=== PATIENT | female | born 2000 | race Caucasian/White ===

== ENCOUNTER → 2021-05-11 | Outpatient (CLI) | payer OTHER ==
[2021-05-12 19:29] LABS: BACTERIAL VAGINOSIS DNA NEGATIVE (NEGATIVE); CANDIDA GLABRATA DNA NEGATIVE (NEGATIVE); CANDIDA GROUP DNA NEGATIVE (NEGATIVE); CANDIDA KRUSEI DNA NEGATIVE (NEGATIVE); TRICHOMONAS VAGINALIS DNA NEGATIVE (NEGATIVE)
== END ==
LOC: LAB.N 08:00
PROVIDERS: ATTEND Physician Assistant Medical
DX: N76.0 Acute vaginitis (principal)
CPT/HCPCS: 87077; 87086; 87661; 87801

== ENCOUNTER 2021-10-02 22:07 | Emergency (ER) | payer OTHER ==
[2021-10-02 22:18] VITALS: BP 131/82
--- NOTE | 2021-10-02 22:20 | ED Physician Documentation ---
PD HPI UPPER EXT INJURY - Stated complaint Stated Complaint: R WRIST PX - Chief complaint Chief Complaint: Ext Problem - History obtained from History obtained from: Patient - History of Present Illness Location: Right, Wrist Type of injury: Fall Where injury occurred: Home Timing - onset: Enter time (12:00 (noon)), Today Timing - details: Abrupt onset Improved by: Rest Worsened by: Moving, Palpating Associated symptoms: No: Weakness, Numbness Recently seen: Not recently seen - Additonal information Additional information: patient tripped over a "baby gate" (per patient) at home, fell backwards onto outstretched RUE and experienced sudden onset right wrist pain when she landed. She is right hand dominant Review of Systems Skin: reports: Reviewed and negative Musculoskeletal: reports: Joint pain, Joint swelling Neurologic: denies: Focal weakness, Numbness PD PAST MEDICAL HISTORY - Past Medical History Past Medical History: No Cardiovascular: None Respiratory: None Neuro: None Endocrine/Autoimmune: None GI: None PHTHALIC ACID PURIFIER: None : None HEENT: None Psych: None Musculoskeletal: None Derm: None - Past Surgical History Past Surgical History: Yes General: Appendectomy, Other Ortho: Other HEENT: Tonsil/Adenoidectomy - Present Medications Home Medications: Ambulatory Orders Medication Instructions Recorded Confirmed No Known Home Medications 10/02/21 10/02/21 - Allergies Allergies/Adverse Reactions: Allergies Allergy/AdvReac Type Severity Reaction Status Date / Time No Known Drug Allergies Allergy Verified 10/02/21 22:17 - Social History Does the pt smoke?: No Smoking Status: Never smoker Does the pt drink ETOH?: No Does the pt have substance abuse?: No - Immunizations Immunizations are current?: Yes - POLST Patient has POLST: No PD ED PE NORMAL - Vitals Vital signs reviewed: Yes - General General: Alert and oriented X 3, No acute distress, Well developed/nourished - Derm Derm: Normal color, Warm and dry - Extremities Extremities: No edema - Neuro Neuro: No motor deficit, No sensory deficit PD ED PE EXPANDED - Extremities Extremities: Tenderness (medial and lateral aspects of right wrist are TTP), Limited ROM (right wrist limited flexion, extension, deviation (both ulnar and radial) due to pain). No: Deformity Results - Vitals Vitals: Vital Signs - 24 hr 10/02/21 10/02/21 10/02/21 22:15 22:48 23:26 Temperature 36.3 C L Heart Rate 88 Respiratory 16 16 15 Rate Blood Pressure 131/82 H O2 Saturation 99 Oxygen O2 Source Room air - Rads (name of study) right wrist xrays Radiology: Prelim report reviewed, See rad report Procedures - Splint (location) Upper extremity right Splint applied by: Nurse Type of splint: Prefab velcro wrist Other: Patient tolerated well, No complications, Neurovascular intact, Good alignment PD MEDICAL DECISION MAKING - ED course Complexity details: reviewed results, re-evaluated patient, considered differential, d/w patient ED course: c/o right wrist pain after falling today at noon. No acute findings on plain- film xrays (no evidence of fracture nor dislocation). velcro wrist splint placed for comfort and to minimize movement for initial few days. Departure - Departure Disposition: 01 Home, Self Care Clinical Impression: Right wrist sprain Condition: Good Instructions: ED Splint Care JUJU Nguyễn Sprain Wrist Forms: Activity restrictions Discharge Date/Time: 10/02/21 23:41
--- NOTE | 2021-10-02 23:24 | XRAY Report ---
PROCEDURE: Wrist 4 View RT INDICATIONS: fall, pain, tenderness TECHNIQUE: 4 views of the wrist were acquired. COMPARISON: None FINDINGS: Bones: No fractures or dislocations. No suspicious bony lesions. Scaphoid view: No fracture Soft tissues: No suspicious soft tissue calcifications. IMPRESSION: Normal right wrist Reviewed by: Dallas Causey on 10/02/2021 11:23 PM [facility] Approved by: Dallas Causey on 10/02/2021 11:23 PM [facility] Station ID: [id number]
== END 2021-10-02 23:41 | disposition home or self-care (01) ==
LOC: ED 22:07
DX: S63.501A Unspecified sprain of right wrist, initial encounter (principal); W01.0XXA Fall on same level from slipping, tripping and stumbling without subsequent striking against object, initial encounter; Y92.009 Unspecified place in unspecified non-institutional (private) residence as the place of occurrence of the external cause
CPT/HCPCS: 99282; 99283

== ENCOUNTER 2021-10-05 12:13 | Outpatient (CLI) | payer OTHER ==
--- NOTE | 2021-10-05 14:48 | XRAY Report ---
Be secondary to PROCEDURE: Wrist 3 View RT INDICATIONS: RIGHT WRIST PAIN S/P FALL 10/02/2021 TECHNIQUE: 3 views of the wrist were acquired. COMPARISON: X-ray of the right wrist, 4 views, 10/02/2021. FINDINGS: Bones: No fractures or dislocations. Questioning of mild widening of scapholunate interval. No susp icious bony lesions. Soft tissues: No suspicious soft tissue calcifications. Soft tissue swelling around wrist. IMPRESSION: 1. No fracture or dislocation. 2. ? Mild widening of scapholunate interval, which could indicate ligamentous injury. Recommend corre lation with focal pain and tenderness. Reviewed by: Shant Alberts MD on 10/05/2021 2:46 PM PST Approved by: Shant Alberts MD on 10/05/2021 2:46 PM PST Station ID: [id number]
== END 2021-10-05 23:59 | disposition home or self-care (01) ==
LOC: DI.N 12:13
PROVIDERS: ATTEND Physician Assistant
DX: M25.531 Pain in right wrist (principal)

== ENCOUNTER 2021-11-16 08:00 | Outpatient (CLI) | payer OTHER | END 2021-11-16 23:59 | LOC: LAB.N 08:00 | PROVIDERS: ATTEND Physician Assistant | DX: R39.9 Unspecified symptoms and signs involving the genitourinary system (principal) | CPT/HCPCS: 87077; 87086 ==

== ENCOUNTER 2022-01-05 22:21 | Emergency (ER) | payer OTHER ==
--- NOTE | 2022-01-05 23:05 | ED Physician Documentation ---
PD HPI LOWER EXT INJURY - Stated complaint Stated Complaint: R FOOT INJURY - Chief complaint Chief Complaint: Trauma Ext - History obtained from History obtained from: Patient - History of Present Illness PD HPI LOW EXT INJURY LOCATION: Right, Ankle, Foot Type of injury: Twist Where injury occurred: Work Timing - onset: Today Timing - duration: Hours (4) Improved by: Rest, Ice Worsened by: Moving, Palpating Associated symptoms: Swelling. 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 She is having difficulty with walking on her right foot. She is complaining of pain to the dorsum of the foot and extending into the toes. 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 : None HEENT: None Psych: None Musculoskeletal: None Derm: None - Past Surgical History Past Surgical History: Yes General: Appendectomy, Other Ortho: Other HEENT: Tonsil/Adenoidectomy - Present Medications Home Medications: Ambulatory Orders Medication Instructions Recorded Confirmed No Known Home Medications 10/02/21 01/05/22 - Allergies Allergies/Adverse Reactions: Allergies Allergy/AdvReac Type Severity Reaction Status Date / Time No Known Drug Allergies Allergy Verified 01/05/22 22:29 - Social History Does the pt smoke?: No Smoking Status: Never smoker Does the pt drink ETOH?: No Does the pt have substance abuse?: No - Immunizations Immunizations are current?: Yes - POLST Patient has POLST: No PD ED PE NORMAL - Vitals Vital signs reviewed: Yes (Hypertensive) - General General: Alert and oriented X 3, No acute distress, Well developed/nourished - HEENT HEENT: Atraumatic, PERRL, EOMI - Respiratory Respiratory: No respiratory distress - Derm Derm: Normal color, Warm and dry, No rash - Extremities Extremities: No deformity, No edema, Other (Tenderness to the dorsal aspect of the right foot. There is no crepitance or deformity to the area distal neurovascular components are intact there is no tenderness to the distal malleoli bilaterally. 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, No motor deficit, No sensory deficit, Normal speech Eye Opening: Spontaneous Motor: Obeys Commands Verbal: Oriented GCS Score: 15 - Psych Psych: Normal mood, Normal affect Results - Vitals Vitals: Vital Signs - 24 hr 01/05/22 01/05/22 22:25 23:35 Temperature 36.6 C 36.6 C Heart Rate 92 89 Respiratory 16 19 Rate Blood Pressure 136/82 H 131/76 H O2 Saturation 98 99 Oxygen O2 Source Room air - Rads (name of study) foot R Radiology: Prelim report reviewed (Impression: Normal right foot.), EMP read indepedently, See rad report Procedures - Splint (location) right foot Splint applied by: Tech Type of splint: Fiberglass, Posterior Other: Patient tolerated well, No complications, Neurovascular intact, Good alignment, Crutches provided PD MEDICAL DECISION MAKING - ED course Complexity details: reviewed results, re-evaluated patient, considered differential, d/w patient ED course: 21-year-old female with a sprain to her right foot is placed into a posterior splint and onto crutches. I indicated the patient may take anywhere from 2 to 5 days or 2 weeks for this to resolve itself and I have given her a note for 1 week for work. Departure - Departure Disposition: 01 Home, Self Care Clinical Impression: Sprain of right foot Qualifiers: Encounter type: initial encounter Qualified Code(s): S93.601A - Unspecified sprain of right foot, initial encounter Condition: Stable Instructions: ED Sprain Foot Follow-Up: Bryan Bond MD [Provider Admit Priv/Credential] - Comments: Violeta, today it looks like you have sprained your foot. This may keep you out of action for several days up to 2 weeks. I have given you a number for follow- up with the orthopedic doctor. If you do not have resolution of your symptoms in a short order follow-up. Use the crutches as needed and wear the splint at least 2 days. Forms: Activity restrictions
--- NOTE | 2022-01-05 23:25 | XRAY Report ---
PROCEDURE: Foot 3 View RT INDICATIONS: Twisted ankle/foot, c/o R foot pain. TECHNIQUE: 3 views of the foot were acquired. COMPARISON: None FINDINGS: Bones: No fractures or dislocations. No suspicious bony lesions. Soft tissues: No tibiotalar joint effusion. Achilles tendon appears normal. IMPRESSION: Normal right foot Reviewed by: Dlalas Causey on 01/05/2022 11:25 PM [facility] Approved by: Dallas Causey on 01/05/2022 11:25 PM [facility] Station ID: [id number]
[2022-01-05 23:37] VITALS: BP 131/76
== END 2022-01-05 23:49 | disposition home or self-care (01) ==
LOC: ED 22:21
DX: S93.601A Unspecified sprain of right foot, initial encounter (principal); X50.1XXA Overexertion from prolonged static or awkward postures, initial encounter; Y93.01 Activity, walking, marching and hiking; Y99.0 Civilian activity done for income or pay
CPT/HCPCS: 1040M; 73630; 29515; 99282

== ENCOUNTER 2022-03-29 08:00 | Outpatient (CLI) | payer OTHER | END 2022-03-29 23:59 | disposition home or self-care (01) | LOC: LAB.N 08:00 | PROVIDERS: ATTEND Family Medicine | DX: J06.9 Acute upper respiratory infection, unspecified (principal); Z20.822 Contact with and (suspected) exposure to COVID-19 ==

== ENCOUNTER 2022-04-11 18:56 | Emergency (ER) | payer OTHER ==
[2022-04-11 19:23] LABS: BASOPHILS # (AUTO) 0.1 10^3/uL (0.0-0.1); BASOPHILS % (AUTO) 0.6 %; EOSINOPHILS # (AUTO) 0.1 10^3/uL (0.0-0.7); EOSINOPHILS % (AUTO) 1.1 %; HCT - HEMATOCRIT 40.9 % (37.0-47.0); HGB - HEMOGLOBIN 12.7 g/dL (12.0-16.0); LYMPHOCYTES # (AUTO) 3.1 10^3/uL (1.5-3.5); LYMPHOCYTES % (AUTO) 27.5 %; MEAN CORPUSCULAR HEMOGLOBIN 27.1 pg (27.0-31.0); MEAN CORPUSCULAR HGB CONC 31.1 g/dL (32.0-36.0); MEAN CORPUSCULAR VOLUME 87.4 fL (81.0-99.0); MEAN PLATELET VOLUME 10.1 fL (7.9-10.8); MONOCYTES # (AUTO) 0.7 10^3/uL (0.0-1.0); MONOCYTES % (AUTO) 6.4 %; NEUTROPHILS # (AUTO) 7.3 10^3/uL (1.5-6.6); NEUTROPHILS % (AUTO) 64.1 %; PLT - PLATELET COUNT 391 10^3/uL (130-450); RED BLOOD COUNT 4.68 10^6/uL (4.20-5.40); RED CELL DISTRIBUTION WIDTH 14.9 % (12.0-15.0); WHITE BLOOD COUNT 11.4 x10^3/uL (4.8-10.8)
[2022-04-11] MEDS ORDERED: ONDANSETRON 4 MG/2 ML VIAL IVP STA (19:25)
[2022-04-11] MEDS ORDERED: SODIUM CHLORIDE 0.9% 1,000 ML IV STA (19:25)
[2022-04-11] MEDS ORDERED: KETOROLAC 15 MG/ML VIAL IVP STA (19:25)
[2022-04-11] MEDS ORDERED: HYDROmorphone 1 MG/ML CARPUJECT IVP STA ×2 (19:25→20:38)
--- OUTSIDE RECORDS SUMMARY | 2022-04-11 19:25 | EXTERNAL MEDICAL SUMMARY RPT | Continuity of Care Document ---
:2000 Author Organization [facility] Address [address] [place] [address] Phone Care Team Providers Name Role Phone SHARAN BARFIELD, Parker Esteban Unavailable UnavailArlin manjarrez LPN Unavailable Unavailable Saúl SAEED Unavailable Unavailable Allergies No information. Encounters No information. Medications date description facility 20220329 prednisone All 20220329 benzonatate All 20220329 prednisone All 20220329 benzonatate All 20220329 prednisone All 20220329 benzonatate All Problems date description facility 20220329 COVID19 Testing All 20220329 Upper respiratory infection All 20220329 Acute upper respiratory infections of u nspecified site All 20220329 Acute upper respiratory infection, unsp ecified All Procedures date description facility 20220329 Med Administration (PO-SL-[place]) All 20220329 Dexamethasone Sodium Phosphate Inj 10mg /1mL All 20220329 POC STREP ASSAY W/OPTIC All 20220329 COVID19 Testing All 20220329 Med Administration ([place]) All 20220329 Dexamethasone Sodium Phosphate Inj 10mg /1mL All 20220329 POC STREP ASSAY W/OPTIC All 20220329 COVID19 Testing All 20220329 Med Administration (PO-SL-[place]) All 20220329 Dexamethasone Sodium Phosphate Inj 10mg /1mL All 20220329 POC STREP ASSAY W/OPTIC All 20220329 COVID19 Testing All Results test status date ordered by attending specimen herson e _2019NCoV_COVID-19_Lab unknown 20220329 unknown unknown unknown _Test_Result_Text_ Streptococcus_pyogenes unknown 20220329 unknown unknown unknown _DNA_Presence_in_Throat _by_NAA_with_probe_dete ction Microbial_identificati unknown 20220329 unknown unknown unknown on_kit_rapid_strep_meth od COVID-19_REFERENCE_TES unknown 20220329 unknown unknown unknown T T unknown 20220329 unknown unknown unknown _2019NCoV_COVID-19_Lab unknown 20220329 unknown unknown unknown _Test_Result_Text_ Streptococcus_pyogenes unknown 20220329 unknown unknown unknown _DNA_Presence_in_Throat _by_NAA_with_probe_dete ction Microbial_identificati unknown 20220329 unknown unknown unknown on_kit_rapid_strep_meth od COVID-19_REFERENCE_TES unknown 20220329 unknown unknown unknown T T unknown 20220329 unknown unknown unknown Streptococcus_pyogenes unknown 20220329 unknown unknown unknown _DNA_Presence_in_Throat _by_NAA_with_probe_dete ction Microbial_identificati unknown 20220329 unknown unknown unknown on_kit_rapid_strep_meth od facility observation status value reference units lab abnor mal line range code notes All _2019NCoV_CO unknown NEGATIVE unknown _6659 unkno wn unknown VID-19_Lab_Te 97 st_Result_Tex t_ All Streptococcu unknown Neg unknown _6048 unknown unknown s_pyogenes_DN 9-2 A_Presence_in _Throat_by_NA A_with_probe_ detection All Microbial_id unknown Neg unknown _3554 unknown unknown entification_ kit_rapid_str ep_method All COVID-19_REF unknown NEGATIVE unknown COVID unkno wn unknown ERENCE_TEST 19.REF All T unknown NEGATIVE unknown COVID unknown un known -19 All _2019NCoV_CO unknown NEGATIVE unknown _6659 unkno wn unknown VID-19_Lab_Te 97 st_Result_Tex t_ All Streptococcu unknown Neg unknown _6048 unknown unknown s_pyogenes_DN 9-2 A_Presence_in _Throat_by_NA A_with_probe_ detection All Microbial_id unknown Neg unknown _3554 unknown unknown entification_ kit_rapid_str ep_method All COVID-19_REF unknown NEGATIVE unknown COVID unkno wn unknown ERENCE_TEST 19.REF All T unknown NEGATIVE unknown COVID unknown un known -19 All Streptococcu unknown Neg unknown _6048 unknown unknown s_pyogenes_DN 9-2 A_Presence_in _Throat_by_NA A_with_probe_ detection All Microbial_id unknown Neg unknown _3554 unknown unknown entification_ kit_rapid_str ep_method Vital Signs date measurement value source 20220329 weight_standard 225 lb 20220329 weight_metric 102.06 kg 20220329 temperature_standard 98.2 F 20220329 temperature_metric 36.78 C 20220329 respiration_rate 28 /min 20220329 height_standard 68 in 20220329 height_metric 172.72 cm 20220329 heart_rate 77 /min 20220329 BP_systolic 130 mm[Hg] 20220329 BP_diastolic 75 mm[Hg] 20220329 BMI 34.33 kg/m2 20220329 weight_standard 225 lb 20220329 weight_metric 102.06 kg 20220329 temperature_standard 98.2 F 20220329 temperature_metric 36.78 C 20220329 respiration_rate 28 /min 20220329 height_standard 68 in 20220329 height_metric 172.72 cm 20220329 heart_rate 77 /min 20220329 BP_systolic 130 mm[Hg] 20220329 BP_diastolic 75 mm[Hg] 20220329 BMI 34.33 kg/m2 20220329 weight_standard 225 lb 20220329 weight_metric 102.06 kg 20220329 temperature_standard 98.2 F 20220329 temperature_metric 36.78 C 20220329 respiration_rate 28 /min 20220329 height_standard 68 in 20220329 height_metric 172.72 cm 20220329 heart_rate 77 /min 20220329 BP_systolic 130 mm[Hg] 20220329 BP_diastolic 75 mm[Hg] 20220329 BMI 34.33 kg/m2
--- NOTE | 2022-04-11 19:27 | ED Physician Documentation ---
PD HPI ABD PAIN - Stated complaint Stated Complaint: KIDNEY PX - Chief complaint Chief Complaint: Abd Pain - History obtained from History obtained from: Patient (A few days of right flank pain much more severe since 4 PM today with some retching and a small amount of hematuria. 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: No Smoking Status: Never smoker Does the pt drink ETOH?: No Does the pt have substance abuse?: No - Immunizations Immunizations are current?: Yes - POLST Patient has POLST: No PD ED PE NORMAL - Vitals Vital signs reviewed: Yes - General General: Alert and oriented X 3, Other (She is crying in pain) - Cardiac Cardiac: RRR, No murmur - Respiratory Respiratory: No respiratory distress, Clear bilaterally - Abdomen Abdomen: Normal bowel sounds, Soft, Non tender - Back Back: No CVA TTP, No spinal TTP - Derm Derm: Normal color, Warm and dry - Extremities Extremities: No edema, No calf tenderness / cord - Neuro Neuro: Alert and oriented X 3, Normal speech Results - Vitals Vitals: Vital Signs - 24 hr 04/11/22 04/11/22 04/11/22 19:00 19:15 19:59 Temperature 36.4 C L Heart Rate 118 H 73 81 Respiratory 20 24 21 Rate Blood Pressure 140/94 H 120/81 H O2 Saturation 98 10 L 100 04/11/22 04/11/22 04/11/22 20:32 20:55 22:23 Temperature 37 C Heart Rate 70 86 70 Respiratory 16 17 14 Rate Blood Pressure 119/84 H 140/84 H O2 Saturation 97 97 97 Oxygen O2 Source Room air - Labs Labs: Laboratory Tests 04/11/22 04/11/22 04/11/22 19:15 19:15 19:15 WBC 11.4 H RBC 4.68 Hgb 12.7 Hct 40.9 MCV 87.4 MCH 27.1 MCHC 31.1 L RDW 14.9 Plt Count 391 MPV 10.1 Neut # (Auto) 7.3 H Lymph # (Auto) 3.1 [place] # (Auto) 0.7 Eos # (Auto) 0.1 Baso # (Auto) 0.1 Absolute Nucleated RBC 0.00 Nucleated RBC % 0.0 Sodium 137 Potassium 3.5 Chloride 103 Carbon Dioxide 24 Anion Gap 10.0 BUN 8 Creatinine 0.8 Estimated GFR (MDRD) 88 L Glucose 91 Calcium 9.4 Total Bilirubin 0.6 AST 16 ALT 23 Alkaline Phosphatase 36 L Total Protein 8.0 Albumin 4.3 Globulin 3.7 Albumin/Globulin Ratio 1.2 Lipase 31 Serum HCG, Qual NEGATIVE Urine Color Urine Clarity Urine pH Ur Specific [place] Urine Protein Urine Glucose (UA) Urine Ketones Urine Occult Blood Urine Nitrite Urine Bilirubin Urine Urobilinogen Ur Leukocyte Esterase Ur Microscopic Review Urine Culture Comments 04/11/22 21:50 WBC RBC Hgb Hct MCV MCH MCHC RDW Plt Count MPV Neut # (Auto) Lymph # (Auto) [place] # (Auto) Eos # (Auto) Baso # (Auto) Absolute Nucleated RBC Nucleated RBC % Sodium Potassium Chloride Carbon Dioxide Anion Gap BUN Creatinine Estimated GFR (MDRD) Glucose Calcium Total Bilirubin AST ALT Alkaline Phosphatase Total Protein Albumin Globulin Albumin/Globulin Ratio Lipase Serum HCG, Qual Urine Color YELLOW Urine Clarity CLEAR Urine pH 6.0 Ur Specific [place] 1.025 Urine Protein NEGATIVE Urine Glucose (UA) NEGATIVE Urine Ketones 15 H Urine Occult Blood NEGATIVE Urine Nitrite NEGATIVE Urine Bilirubin NEGATIVE Urine Urobilinogen 0.2 (NORMAL) Ur Leukocyte Esterase NEGATIVE Ur Microscopic Review NOT INDICATED Urine Culture Comments NOT INDICATED PD MEDICAL DECISION MAKING - ED course ED course: 22-year-old woman with severe right flank pain a couple days duration, much worse today. She is writhing in pain and we were able to eventually get a hold of her pain here. Her work-up is basically negative and on repeat examination she was nontender and feeling much better. CT did not show any ureterolithiasis or nephrolithiasis. Urine without pyelonephritis. Departure - Departure Disposition: 01 Home, Self Care Clinical Impression: Right flank pain Condition: Good Record reviewed to determine appropriate education?: Yes Instructions: ED Abdominal Pain Female Non-Specific Abdominal Pain Prescriptions: Oxycodone HCl/Acetaminophen [Percocet 5-325 mg Tablet] 1 - 2 each PO Q6H PRN #14 tablet PRN Reason: pain Comments: As discussed, the cause of your pain is unclear but the CAT scan and labs and urine do not show anything too concerning. Return Saturday if not better, anytime if worse. I sent your prescription electronically to [facility] in [place]. I am prescribing a short course of narcotic pain medication for you. These are potentially dangerous and addictive medications that should be used carefully. These medications may constipate you. Take an ihzy-psx-yklecaz stool softener (docusate) twice daily with plenty of water while taking these medications. If you go 24 hours without a bowel movement, take [id number] miralax, per package instructions. Do not drink or drive while taking these medications. If you received narcotic or sedating medications while in the emergency department, do not drive for 24 hours. Store this medication in a safe, secure place and out of reach of children. It is a violation of federal law to give or sell this medication to another person or to use in a manner other than prescribed. The ED will not refill narcotic prescriptions, including prescriptions lost or stolen. To dispose of unwanted medications: 1. [facility] at [address] in [place] has a medication drop box. They accept prescription medications (in pill form) Saturday through Saturday 9:00 a.m. to 5:00 p.m. 2. The [facility] accepts prescription medications (in pill form only) for disposal year round. Call for more information. 3. Contact the [facility] for the next [facility] sponsored prescription drug collection event. , [phone], or [phone]; Note that many narcotic pain relievers also contain Tylenol/acetaminophen. Please ensure that your total dose of acetaminophen from all sources does not exceed 3 g (3000 mg) per day. Discharge Date/Time: 04/11/22 22:22
[2022-04-11 19:49] LABS: BILIRUBIN,TOTAL 0.6 mg/dL (0.2-1.0); CALCIUM 9.4 mg/dL (8.5-10.3); CREATININE 0.8 mg/dL (0.4-1.0); POTASSIUM 3.5 mmol/L (3.5-5.0)
[2022-04-11 19:50] LABS: ALBUMIN 4.3 g/dL (3.2-5.5); ALBUMIN/GLOBULIN RATIO 1.2 (1.0-2.2)
[2022-04-11 20:06] LABS: HCG,QUALITATIVE BLOOD NEGATIVE
[2022-04-11] MEDS ORDERED: HALOPERIDOL 5 MG/ML VIAL IVP STA (20:38)
--- NOTE | 2022-04-11 20:58 | CT Report ---
PROCEDURE: Abdomen/Pelvis WO INDICATIONS: Right flank pain TECHNIQUE: Noncontrast 5 mm thick sections acquired from the diaphragms to the symphysis. 5 mm coronal and sagi ttal reformats were then performed. For radiation dose reduction, the following was used: automated exposure control, adjustment of mA and/or kV according to patient size. COMPARISON: None. FINDINGS: Image quality: Excellent. Lung bases: There is mild dependant atelectasis. Heart: Heart is normal in size. URINARY: Right Kidney and Ureter: No stones or hydronephrosis. No hydroureter. Left Kidney and Ureter: No stones or hydronephrosis. No hydroureter. Bladder: Normal wall thickness. No stones. ABDOMEN: Liver: Noncontrast evaluation of the liver demonstrates no discrete mass. Gallbladder: Within normal limits without calcified gallstones. Biliary ducts: No biliary ductal dilatation. Pancreas: Unremarkable. Spleen: Normal in size. Adrenal Glands: No adrenal nodules. Stomach and Bowel: Stomach, small bowel loops, and colon are normal in caliber and wall thickness. T he appendix is not discretely identified and may be surgically absent. There are surgical sutures adj acent to cecum likely related to prior appendectomy. No pericecal inflammatory changes. There are a f ew colonic diverticula without acute diverticulitis Peritoneum: No abnormal intraperitoneal fluid. No free air. Ventral Wall: No hernia. Abdominal Nodes: No retroperitoneal or mesenteric adenopathy by size criteria. Vessels: Aorta and inferior vena cava are normal in size. PELVIS: Pelvic Organs:The uterus and ovaries appear within normal size limits. Pelvic Nodes: No enlarged lymph nodes. Miscellaneous: No inguinal hernias identified. Bones: Visualized osseous structures demonstrate no suspicious focal lesions. IMPRESSION: 1. No definite acute intra-abdominal abnormality. Specifically, no evidence of nephrolithiasis or obs tructive uropathy. Reviewed by: Sameer Urrutia MD on 04/11/2022 8:57 PM PDT Approved by: Sameer Urrutia MD on 04/11/2022 8:57 PM PDT Station ID: [id number]
[2022-04-11 22:02] LABS: BILIRUBIN,URINE NEGATIVE (NEGATIVE); GLUCOSE, URINE (UA) NEGATIVE (NEGATIVE); KETONES,URINE (UA) 15 mg/dL (NEGATIVE); LEUKOCYTE ESTERASE, URINE NEGATIVE (NEGATIVE); NITRITE,URINE NEGATIVE (NEGATIVE); OCCULT BLOOD,URINE NEGATIVE (NEGATIVE); PROTEIN,URINE NEGATIVE (NEGATIVE); UROBILINOGEN,URINE 0.2 (NORMAL) E.U./dL (NORMAL)
[2022-04-11 22:06] LABS: CLARITY,URINE CLEAR (CLEAR)
[2022-04-11] MEDS ORDERED: oxyCODONE/ACET 5/325 Prepack 4 PO STA (22:17)
[2022-04-11 22:24] VITALS: BP 140/84
== END 2022-04-11 22:22 | disposition home or self-care (01) ==
LOC: ED 18:56
DX: R10.9 Unspecified abdominal pain (principal)
CPT/HCPCS: 36415; 74176; 80053; 81003; 83690; 84703; 85025; 96374; 96375; 96376; 99284; 99285; J1170; 81001; 87086

== ENCOUNTER 2022-10-07 18:41 | Emergency (ER) | payer OTHER ==
[2022-10-07 18:57] VITALS: BP 104/90
--- OUTSIDE RECORDS SUMMARY | 2022-10-07 19:17 | EXTERNAL MEDICAL SUMMARY RPT | Continuity of Care Document ---
:2000 Author Organization [facility] Address [address] [place] [address] Phone Care Team Providers Name Role Phone Unavailable Unavailable Unavailable Elza Pierson Robert Unavailable Unavailable Allergies No information. Encounters No information. Functional Status No information. Immunizations No information. Medications date description facility [id number] methylprednisolone All [id number]+0000 methylprednisolone All [id number]+0000 methylprednisolone All [id number]+0000 methylprednisolone All Problems No information. Procedures date description facility [id number] Visit Code Hold All [id number] POC STREP TEST All [id number] COVID, FLU A+B Antigen (In Clinic Free Test) All Results/Labs No information. Social History No information. Vital Signs date measurement value units [id number]+0000 BMI BMI 32.81 kg/m2 57229355289651+0000 BP_diastolic BP_diastolic 81 mmHg [id number]+0000 BP_systolic BP_systolic 128 mmHg [id number]+0000 heart_rate heart_rate 96 /min [id number]+0000 height_metric height_metric 172.72 cm [id number]+0000 height_standard height_standard 68 in [id number]+0000 respiration_rate respiration_rate 18 /min [id number]+0000 temperature_metric temperature_metric 37.33 C [id number]+0000 temperature_standard temperature_standard 9 9.2 F [id number]+0000 weight_metric weight_metric 97.52 kg [id number]+0000 weight_standard weight_standard 215 lb
[2022-10-07] MEDS ORDERED: oxyCODONE 5 MG TABLET PO STA (20:50)
[2022-10-07] MEDS ORDERED: KETOROLAC 30 MG/ML VIAL IM STA (20:50)
--- NOTE | 2022-10-07 20:52 | ED Physician Documentation ---
History of Present Illness - Stated complaint Stated Complaint: BACK PX/RT LEG NUMBNESS - Chief complaint Chief Complaint: Trauma Ch/Bk - History obtained from History obtained from: Patient - Additonal information Additional information: 22yF with pmh back pain, herniated discs, p/w sharp sudden onset BL lower back pain radiating to RLE a/w pins and needles sensation in extremity since picking up her toddler 3 days ago and feeling a "popping" sensation. no relief since that time. denies other injury. 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 : None HEENT: None Psych: None Musculoskeletal: None Derm: None - Past Surgical History Past Surgical History: Yes General: Appendectomy, Other Ortho: Other HEENT: Tonsil/Adenoidectomy - Present Medications Home Medications: Ambulatory Orders Medication Instructions Recorded Confirmed Gabapentin [Neurontin] 300 mg PO TID PRN 10/07/22 10/07/22 methocarbamoL [Robaxin] 500 mg PO Q6H PRN #7 tablet 10/07/22 - Allergies Allergies/Adverse Reactions: Allergies Allergy/AdvReac Type Severity Reaction Status Date / Time No Known Drug Allergies Allergy Verified 10/07/22 18:57 - Social History Does the pt smoke?: No Smoking Status: Never smoker Does the pt drink ETOH?: No Does the pt have substance abuse?: No - Immunizations Immunizations are current?: Yes - POLST Patient has POLST: No PD ED PE NORMAL - Vitals Vital signs reviewed: Yes - General General: Alert and oriented X 3, No acute distress, Well developed/nourished - Back Back: No spinal TTP, Other (BL paraspinal muscles tender to palpation) - Derm Derm: Normal color, Warm and dry Results - Vitals Vitals: Oxygen O2 Source Room air PD MEDICAL DECISION MAKING - ED course ED course: 22yF p/w acute on chronic back pain without red flags. symptom care provided. return precautions given. f/u with pcp for referral to pt and pain management. Departure - Departure Disposition: 01 Home, Self Care Clinical Impression: Sciatica Condition: Good Instructions: ED Sciatica Prescriptions: methocarbamoL [Robaxin] 500 mg PO Q6H PRN #7 tablet PRN Reason: Pain Comments: You were seen in the ED for back pain and likely sciatica. Please follow up with a primary care provider for possible referral to physical therapy and pain management and return to the ED for any new or worsening symptoms or if you have other concerns. Prescription for muscle relaxer was sent to [facility] electronically. Discharge Date/Time: 10/07/22 21:08
== END 2022-10-07 21:08 | disposition home or self-care (01) ==
LOC: ED 18:41
DX: M54.30 Sciatica, unspecified side (principal)
CPT/HCPCS: 96372; 99281; 99283; A9270

== ENCOUNTER 2023-01-09 16:30 | Outpatient (CLI) | payer OTHER ==
[2023-01-09 20:38] LABS: BASOPHILS % (AUTO) 0.5 %; EOSINOPHILS # (AUTO) 0.1 10^3/uL (0.0-0.7); EOSINOPHILS % (AUTO) 1.1 %; HCT - HEMATOCRIT 36.4 % (37.0-47.0); HGB - HEMOGLOBIN 11.2 g/dL (12.0-16.0); LYMPHOCYTES % (AUTO) 24.3 %; MEAN CORPUSCULAR HEMOGLOBIN 28.3 pg (27.0-31.0); MEAN CORPUSCULAR HGB CONC 30.8 g/dL (32.0-36.0); MEAN CORPUSCULAR VOLUME 91.9 fL (81.0-99.0); MEAN PLATELET VOLUME 10.7 fL (7.9-10.8); MONOCYTES # (AUTO) 0.4 10^3/uL (0.0-1.0); MONOCYTES % (AUTO) 5.4 %; NEUTROPHILS # (AUTO) 5.6 10^3/uL (1.5-6.6); NEUTROPHILS % (AUTO) 68.3 %; PLT - PLATELET COUNT 335 10^3/uL (130-450); RED BLOOD COUNT 3.96 10^6/uL (4.20-5.40); WHITE BLOOD COUNT 8.1 x10^3/uL (4.8-10.8)
[2023-01-09 21:02] LABS: BILIRUBIN,TOTAL 0.5 mg/dL (0.2-1.0); CALCIUM 9.4 mg/dL (8.5-10.3); CREATININE 0.8 mg/dL (0.4-1.0); POTASSIUM 3.9 mmol/L (3.5-5.0)
== END 2023-01-09 16:45 | disposition home or self-care (01) ==
LOC: LAB.N 16:30
PROVIDERS: ATTEND Physician Assistant
DX: R11.2 Nausea with vomiting, unspecified (principal)
CPT/HCPCS: 36415; 80053; 83690; 85025

== ENCOUNTER 2023-04-21 17:04 | Emergency (ER) | payer OTHER ==
[2023-04-21] MEDS ORDERED: LORazepam 2 MG/ML VIAL IVP STA (17:56)
[2023-04-21] MEDS ORDERED: ONDANSETRON 4 MG/2 ML VIAL IVP STA (17:56)
[2023-04-21] MEDS ORDERED: KETOROLAC 15 MG/ML VIAL IVP STA (17:56)
[2023-04-21] MEDS ORDERED: SODIUM CHLORIDE 0.9% 1,000 ML IV STA (17:56)
--- NOTE | 2023-04-21 17:57 | ED Physician Documentation ---
PD HPI ABD PAIN - Stated complaint Stated Complaint: VOMITING/RT EAR PX - Chief complaint Chief Complaint: Abd Pain - History obtained from History obtained from: Patient - Additional information Additional information: 23-year-old woman with history of fibromyalgia, ankylosing spondylitis, she has been sick with a sore throat for 5 days and started vomiting a few days ago which has been particularly bad since yesterday. Is associated with a headache and posterior neck pain. No fevers. Her children recently had pinkeye and she is worried that she is getting pinkeye because her left eye was matted shut this morning but seems better now. She was seen in the urgent care and tested for strep which was negative. 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 HEENT: None Psych: None Musculoskeletal: None Derm: None - Past Surgical History Past Surgical History: Yes General: Appendectomy, Other Ortho: Other HEENT: Tonsil/Adenoidectomy - Present Medications Home Medications: Ambulatory Orders Medication Instructions Recorded Confirmed Gabapentin [Neurontin] 300 mg PO TID PRN 10/07/22 10/07/22 methocarbamoL [Robaxin] 500 mg PO Q6H PRN #7 tablet 10/07/22 Amox/Clav 875/125 [Augmentin] 1 each PO Q12H #20 tablet 04/21/23 Ibuprofen [Motrin] 800 mg PO Q8H PRN #30 tablet 04/21/23 Ondansetron Odt [Zofran] 4 mg TL Q6H PRN #10 tablet 04/21/23 - Allergies Allergies/Adverse Reactions: Allergies Allergy/AdvReac Type Severity Reaction Status Date / Time No Known Drug Allergies Allergy Verified 10/07/22 18:57 - Social History Does the pt smoke?: No Smoking Status: Never smoker Does the pt drink ETOH?: No Does the pt have substance abuse?: No - Immunizations Immunizations are current?: Yes - POLST Patient has POLST: No PD ED PE NORMAL - Vitals Vital signs reviewed: Yes - General General: Alert and oriented X 3, Other (She is crying, hyperventilating and tearful) - HEENT HEENT: PERRL, EOMI, Other (Severe right otitis media. Surgically absent tonsils.) - Neck Neck: Supple, no meningeal sign, No bony TTP - Cardiac Cardiac: RRR, No murmur - Respiratory Respiratory: No respiratory distress, Clear bilaterally - Abdomen Abdomen: Non tender - Derm Derm: No rash - Neuro Neuro: Alert and oriented X 3, Normal speech Results - Vitals Vitals: Vital Signs - 24 hr 04/21/23 04/21/23 17:09 19:24 Temperature 36.3 C L Heart Rate 88 85 Respiratory 22 18 Rate Blood Pressure 116/80 101/74 O2 Saturation 100 100 Oxygen O2 Source Room air - Labs Labs: Laboratory Tests 04/21/23 04/21/23 04/21/23 17:26 17:26 17:43 WBC 13.7 H RBC 4.19 L Hgb 11.8 L Hct 37.3 MCV 89.0 MCH 28.2 MCHC 31.6 L RDW 14.0 Plt Count 399 MPV 10.1 Neut # (Auto) 10.8 H Lymph # (Auto) 1.9 [place] # (Auto) 0.9 Eos # (Auto) 0.1 Baso # (Auto) 0.1 Absolute Nucleated RBC 0.00 Nucleated RBC % 0.0 Sodium 139 Potassium 3.1 L Chloride 106 Carbon Dioxide 25 Anion Gap 8.0 BUN 11 Creatinine 0.7 Estimated GFR (MDRD) 102 Glucose 94 Calcium 9.6 Total Bilirubin 0.9 AST 16 ALT 21 Alkaline Phosphatase 34 L Total Protein 9.5 H Albumin 4.5 Globulin 5.0 H Albumin/Globulin Ratio 0.9 L Urine Color LT. YELLOW Urine Clarity CLOUDY Urine pH 5.5 Ur Specific Ulysses >=1.030 H Urine Protein TRACE Urine Glucose (UA) NEGATIVE Urine Ketones TRACE Urine Occult Blood NEGATIVE Urine Nitrite NEGATIVE Urine Bilirubin NEGATIVE Urine Urobilinogen 0.2 (NORMAL) Ur Leukocyte Esterase NEGATIVE Urine RBC None Seen Urine WBC 0-3 Ur Squamous Epith Cells NONE SEEN Amorphous Sediment Marked Urine Bacteria None Seen Ur Microscopic Review INDICATED Urine Culture Comments NOT INDICATED Urine HCG, Qual NEGATIVE Nasal Adenovirus (PCR) Nasal B. parapertussis DNA (PCR) Nasal Coronavir 229E PCR Nasal Coronavir HKU1 PCR Nasal Coronavir NL63 PCR Nasal Coronavir OC43 PCR Nasal Enterovir/Rhinovir PCR Nasal Influenza B PCR Nasal Influenza A PCR Nasal Parainfluen 1 PCR Nasal Parainfluen 2 PCR Nasal Parainfluen 3 PCR Nasal Parainfluen 4 PCR Nasal RSV (PCR) Nasal B.pertussis DNA PCR Nasal C.pneumoniae (PCR) Ajith Human Metapneumo PCR Nasal M.pneumoniae (PCR) Nasal SARS-CoV-2 (PCR) 04/21/23 18:49 WBC RBC Hgb Hct MCV MCH MCHC RDW Plt Count MPV Neut # (Auto) Lymph # (Auto) [place] # (Auto) Eos # (Auto) Baso # (Auto) Absolute Nucleated RBC Nucleated RBC % Sodium Potassium Chloride Carbon Dioxide Anion Gap BUN Creatinine Estimated GFR (MDRD) Glucose Calcium Total Bilirubin AST ALT Alkaline Phosphatase Total Protein Albumin Globulin Albumin/Globulin Ratio Urine Color Urine Clarity Urine pH Ur Specific Ulysses Urine Protein Urine Glucose (UA) Urine Ketones Urine Occult Blood Urine Nitrite Urine Bilirubin Urine Urobilinogen Ur Leukocyte Esterase Urine RBC Urine WBC Ur Squamous Epith Cells Amorphous Sediment Urine Bacteria Ur Microscopic Review Urine Culture Comments Urine HCG, Qual Nasal Adenovirus (PCR) NOT DETECTED Nasal B. parapertussis DNA (PCR) NOT DETECTED Nasal Coronavir 229E PCR NOT DETECTED Nasal Coronavir HKU1 PCR NOT DETECTED Nasal Coronavir NL63 PCR NOT DETECTED Nasal Coronavir OC43 PCR NOT DETECTED Nasal Enterovir/Rhinovir PCR NOT DETECTED Nasal Influenza B PCR NOT DETECTED Nasal Influenza A PCR NOT DETECTED Nasal Parainfluen 1 PCR NOT DETECTED Nasal Parainfluen 2 PCR NOT DETECTED Nasal Parainfluen 3 PCR NOT DETECTED Nasal Parainfluen 4 PCR NOT DETECTED Nasal RSV (PCR) NOT DETECTED Nasal B.pertussis DNA PCR NOT DETECTED Nasal C.pneumoniae (PCR) NOT DETECTED Ajith Human Metapneumo PCR NOT DETECTED Nasal M.pneumoniae (PCR) NOT DETECTED Nasal SARS-CoV-2 (PCR) NOT DETECTED PD Medical Decision Making - ED course ED course: 23-year-old woman presents with headache, stabbing right ear pain, right-sided neck pain, with some significant anxiety component. She was medicated with IV fluids, Ativan, Toradol and subsequently 1 dose of morphine after which she was feeling much better. On reexamination at 8 PM she had no meningismus. Review of her work-up demonstrates mild leukocytosis. Mild hypokalemia on CMP that was repeated orally. Normal urinalysis and negative test. Negative bio fire viral panel. Departure - Departure Disposition: 01 Home, Self Care Clinical Impression: ROM (right otitis media) Qualifiers: Otitis media type: suppurative Chronicity: acute Recurrence: non-recurrent Spontaneous tympanic membrane rupture: without spontaneous rupture Qualified Code(s): H66.001 - Acute suppurative otitis media without spontaneous rupture of ear drum, right ear Condition: Good Record reviewed to determine appropriate education?: Yes Instructions: ED Otitis Media Acute Adult Prescriptions: Amox/Clav 875/125 [Augmentin] 1 each PO Q12H #20 tablet Ibuprofen [Motrin] 800 mg PO Q8H PRN #30 tablet PRN Reason: PAIN &/OR FEVER Ondansetron Odt [Zofran] 4 mg TL Q6H PRN #10 tablet PRN Reason: Nausea / Vomiting Comments: You were seen today and found to have a severe right ear infection. I am treating this with antibiotics. You had a mildly low potassium and we did give you a dose. Call your doctor to arrange a follow-up appointment, make the next available appointment. In the interim, return anytime if worse or if new symptoms develop. Forms: Activity restrictions
[2023-04-21 18:02] LABS: BASOPHILS # (AUTO) 0.1 10^3/uL (0.0-0.1); BASOPHILS % (AUTO) 0.6 %; EOSINOPHILS # (AUTO) 0.1 10^3/uL (0.0-0.7); EOSINOPHILS % (AUTO) 0.4 %; HCT - HEMATOCRIT 37.3 % (37.0-47.0); HGB - HEMOGLOBIN 11.8 g/dL (12.0-16.0); LYMPHOCYTES # (AUTO) 1.9 10^3/uL (1.5-3.5); LYMPHOCYTES % (AUTO) 13.5 %; MEAN CORPUSCULAR HEMOGLOBIN 28.2 pg (27.0-31.0); MEAN CORPUSCULAR HGB CONC 31.6 g/dL (32.0-36.0); MEAN PLATELET VOLUME 10.1 fL (7.9-10.8); MONOCYTES # (AUTO) 0.9 10^3/uL (0.0-1.0); MONOCYTES % (AUTO) 6.3 %; NEUTROPHILS # (AUTO) 10.8 10^3/uL (1.5-6.6); NEUTROPHILS % (AUTO) 78.8 %; PLT - PLATELET COUNT 399 10^3/uL (130-450); RED BLOOD COUNT 4.19 10^6/uL (4.20-5.40); WHITE BLOOD COUNT 13.7 x10^3/uL (4.8-10.8)
[2023-04-21 18:10] LABS: ALBUMIN 4.5 g/dL (3.2-5.5); ALBUMIN/GLOBULIN RATIO 0.9 (1.0-2.2); BILIRUBIN,TOTAL 0.9 mg/dL (0.2-1.0); CALCIUM 9.6 mg/dL (8.5-10.3); CREATININE 0.7 mg/dL (0.4-1.0); POTASSIUM 3.1 mmol/L (3.5-5.0); TOTAL PROTEIN 9.5 g/dL (6.7-8.2)
[2023-04-21 18:15] LABS: GLUCOSE, URINE (UA) NEGATIVE (NEGATIVE); KETONES,URINE (UA) TRACE mg/dL (NEGATIVE); LEUKOCYTE ESTERASE, URINE NEGATIVE (NEGATIVE); NITRITE,URINE NEGATIVE (NEGATIVE); OCCULT BLOOD,URINE NEGATIVE (NEGATIVE); PH,URINE 5.5 PH (5.0-7.5); PROTEIN,URINE TRACE mg/dL (NEGATIVE); UROBILINOGEN,URINE 0.2 (NORMAL) E.U./dL (NORMAL)
[2023-04-21 18:19] LABS: BILIRUBIN,URINE NEGATIVE (NEGATIVE); ICTOTEST,URINE NEGATIVE
[2023-04-21 18:20] LABS: CLARITY,URINE CLOUDY (CLEAR); HCG UR QUAL NEGATIVE
[2023-04-21 18:27] LABS: BACTERIA,URINE None Seen /HPF (None Seen); RBC,URINE None Seen /HPF (0-5); SQUAMOUS EPITHELIAL CELL,UR NONE SEEN (<= Few); WBC,URINE 0-3 /HPF (0-5)
[2023-04-21 18:28] LABS: AMORPHOUS SEDIMENT,UR Marked /LPF
[2023-04-21] MEDS ORDERED: POTASSIUM BICARB 25 MEQ TABLET PO STA (18:36)
[2023-04-21] MEDS ORDERED: MORPHINE 2 MG/ML CARPUJECT IVP STA (19:16)
[2023-04-21 19:50] LABS: B. PARAPERTUSSIS- RESP PCR PAN NOT DETECTED; B. PERTUSSIS- RESP PCR PANEL NOT DETECTED; C. PNEUMONIAE- RESP PCR PANEL NOT DETECTED; CORONAVIRUS 229E-RESP PCR NOT DETECTED; CORONAVIRUS HKU1-RESP PCR NOT DETECTED; CORONAVIRUS NL63-RESP PCR NOT DETECTED; CORONAVIRUS OC43-RESP PCR NOT DETECTED; HUMAN METAPNEUMOVIRUS NOT DETECTED; INFLUENZA A- RESP PCR PANEL NOT DETECTED; INFLUENZA B - RESP PCR PANEL NOT DETECTED; M. PNEUMONIAE- RESP PCR PANEL NOT DETECTED; PARAINFLUENZA VIRUS 1 NOT DETECTED; PARAINFLUENZA VIRUS 2 NOT DETECTED; PARAINFLUENZA VIRUS 3 NOT DETECTED; PARAINFLUENZA VIRUS 4 NOT DETECTED; RHINOVIRUS/ENTEROVIRUS NOT DETECTED; RSV- RESP PCR PANEL NOT DETECTED; SARS-CoV-2 -RESP PCR PANEL NOT DETECTED
[2023-04-21] MEDS ORDERED: AMOX/CLAV 875 MG/125 MG TABLET PO STA (20:06)
[2023-04-21] MEDS ORDERED: HYDROcod/ACET 5/325 Prepack 4 PO STA (20:06)
[2023-04-21 20:31] VITALS: BP 108/80
== END 2023-04-21 20:30 | disposition home or self-care (01) ==
LOC: ED 17:04
DX: H66.001 Acute suppurative otitis media without spontaneous rupture of ear drum, right ear (principal); F41.9 Anxiety disorder, unspecified; E87.6 Hypokalemia; Z20.822 Contact with and (suspected) exposure to COVID-19
CPT/HCPCS: 36415; 80053; 81001; 81025; 85025; 87633; 96361; 96374; 96375; 99283; A9270; J2060; 81003; 87086

== ENCOUNTER 2023-05-19 20:03 | Emergency (ER) | payer OTHER ==
[2023-05-19 20:08] VITALS: BP 131/93
[2023-05-19] MEDS ORDERED: DEXAMETHASONE 10 MG/ML VIAL PO STA (20:14)
[2023-05-19] MEDS ORDERED: CHERRY SYRUP 10 ML UDC PO ONE (20:14)
[2023-05-19] MEDS ORDERED: HYDROcod/ACET 5/325 Prepack 4 PO STA (20:14)
[2023-05-19] MEDS ORDERED: CETIRIZINE 10 MG TABLET PO STA (20:14)
--- NOTE | 2023-05-19 20:17 | ED Physician Documentation ---
PD HPI HEENT - Stated complaint Stated Complaint: SORE THROAT - Chief complaint Chief Complaint: Heent - History obtained from History obtained from: Patient - Additional information Additional information: 23-year-old woman has had 2 months of sore throat. Has already been treated for strep and ear infections. Pain is severe and unrelenting. Hurts to swallow. Hurts to talk. No fevers. 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 : None HEENT: None Psych: None Musculoskeletal: None Derm: None - Past Surgical History Past Surgical History: Yes General: Appendectomy, Other Ortho: Other HEENT: Tonsil/Adenoidectomy - Present Medications Home Medications: Ambulatory Orders Medication Instructions Recorded Confirmed Cetirizine [ZyrTEC] 10 mg PO DAILY #30 tablet 05/19/23 HYDROcod/ACETAM 5/325 [[place] 5/325] 1 - 2 tab PO Q6H PRN #7 tablet 05/19/23 dexAMETHasone [Decadron] 4 mg PO BIDWM #10 tablet 05/19/23 - Allergies Allergies/Adverse Reactions: Allergies Allergy/AdvReac Type Severity Reaction Status Date / Time No Known Drug Allergies Allergy Verified 05/19/23 20:08 - Social History Does the pt smoke?: No Smoking Status: Never smoker Does the pt drink ETOH?: No Does the pt have substance abuse?: No - Immunizations Immunizations are current?: Yes - POLST Patient has POLST: No PD ED PE NORMAL - Vitals Vital signs reviewed: Yes - General General: Alert and oriented X 3, No acute distress - HEENT HEENT: PERRL, EOMI - Neck Neck: Other (Surgically absent tonsils, she has cobblestoning in the retropharynx. Slightly hoarse voice. No swelling.) - Neuro Neuro: Alert and oriented X 3, Normal speech - Psych Psych: Normal mood, Normal affect Results - Vitals Vitals: Vital Signs - 24 hr 05/19/23 20:05 Temperature 36.8 C Heart Rate 82 Respiratory 16 Rate Blood Pressure 131/93 H O2 Saturation 100 Oxygen O2 Source Room air PD Medical Decision Making - ED course ED course: 23-year-old who looks like she has allergic pharyngitis corroborated by the time course and exam. We will start on steroids and Zyrtec and she needs something for pain. Referred to ENT. Departure - Departure Disposition: 01 Home, Self Care Clinical Impression: Allergic pharyngitis Condition: Good Record reviewed to determine appropriate education?: Yes Instructions: ED Allergy Seasonal Prescriptions: dexAMETHasone [Decadron] 4 mg PO BIDWM #10 tablet HYDROcod/ACETAM 5/325 [[place] 5/325] 1 - 2 tab PO Q6H PRN #7 tablet PRN Reason: Pain Cetirizine [ZyrTEC] 10 mg PO DAILY #30 tablet Comments: As discussed, given the time course and examination this looks very allergic/inflammatory as opposed to infectious. The steroids and Zyrtec will be helpful and I also prescribed a few painkillers up to [facility] in [place]. Given the time course, it is reasonable for you to follow-up with an ENT specialist, the closest is in [place], the phone number is [phone]. Call tomorrow for the next available appointment. Return if worse. I am prescribing a short course of narcotic pain medication for you. These are potentially dangerous and addictive medications that should be used carefully. These medications may constipate you. Take an [id number] stool softener (docusate) twice daily with plenty of water while taking these medications. If you go 24 hours without a bowel movement, take [id number] miralax, per package instructions. Do not drink or drive while taking these medications. If you received narcotic or sedating medications while in the emergency department, do not drive for 24 hours. Store this medication in a safe, secure place and out of reach of children. It is a violation of federal law to give or sell this medication to another person or to use in a manner other than prescribed. The ED will not refill narcotic prescriptions, including prescriptions lost or stolen. To dispose of unwanted medications: 1. [facility] provides a drop box for medication in pill form only (no liquids) 8:00 am to 4:30 p.m. Saturday-Saturday in the lobby of the [facility], [address] [place] [address]. Empty pills into ziplock bag before disposal. Call [phone] for information. 2.[employer] is a free service available to all [facility] residents. Go to [email or web address] Note that many narcotic pain relievers also contain Tylenol/acetaminophen. Please ensure that your total dose of acetaminophen from all sources does not exceed 3 g (3000 mg) per day.
== END 2023-05-19 20:30 | disposition home or self-care (01) ==
LOC: ED 20:03
DX: J02.9 Acute pharyngitis, unspecified (principal)
CPT/HCPCS: 99282; 99283; A9270

== ENCOUNTER 2024-04-10 01:43 | Emergency (ER) | payer OTHER ==
--- NOTE | 2024-04-10 02:13 | ED Physician Documentation ---
History of Present Illness - Stated complaint Stated Complaint: COUGH/SOA - Chief complaint Chief Complaint: Resp - History obtained from History obtained from: Patient - Additonal information Additional information: 24yF with pmh anxiety, fibromyalgia, multiple previous ED visits for sore throat and cough with diagnosis of allergic pharyngitis, p/w nonproductive cough X 3 weeks and soa tonight. denies cp, fever, n/v/d, abdominal or back pain. 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 : None HEENT: None Psych: None Musculoskeletal: None Derm: None - Past Surgical History Past Surgical History: Yes General: Appendectomy, Other Ortho: Other HEENT: Tonsil/Adenoidectomy - Present Medications Home Medications: Ambulatory Orders Medication Instructions Recorded Confirmed Guaifen/Dextromethorphan/PE [ft 5 ml PO Q4H PRN #237 ml 04/10/24 Adult Tussin Cf Liquid] - Allergies Allergies/Adverse Reactions: Allergies Allergy/AdvReac Type Severity Reaction Status Date / Time No Known Drug Allergies Allergy Verified 04/10/24 01:50 - Social History Does the pt smoke?: No Smoking Status: Never smoker Does the pt drink ETOH?: No Does the pt have substance abuse?: No - Immunizations Immunizations are current?: Yes - POLST Patient has POLST: No PD ED PE NORMAL - Vitals Vital signs reviewed: Yes - General General: Alert and oriented X 3, No acute distress, Well developed/nourished - HEENT HEENT: Atraumatic, PERRL, EOMI, Moist mucous membranes, Pharynx benign - Neck Neck: Supple, no meningeal sign - Cardiac Cardiac: RRR - Respiratory Respiratory: No respiratory distress, Clear bilaterally, Other (intermittent deep cough, nonproductive) - Abdomen Abdomen: Non tender, Non distended - Derm Derm: Normal color, Warm and dry Results - Vitals Vitals: Vital Signs - 24 hr 04/10/24 01:44 Temperature 36.8 C Heart Rate 85 Respiratory 20 Rate Blood Pressure 121/81 H O2 Saturation 99 Oxygen O2 Source Room air PD Medical Decision Making - ED course ED course: 24yF p/w coughing fits tonight causing soa, likely allergic bronchitis. patient recently recovered from pneumonia. Well appearing with benign vitals and exam. return precautions given.plan to f/u with pcp. Departure - Departure Disposition: 01 Home, Self Care Clinical Impression: Cough Condition: Stable Instructions: Coughing Techniques Dc Prescriptions: Guaifen/Dextromethorphan/PE [ft Adult Tussin Cf Liquid] 5 ml PO Q4H PRN #237 ml PRN Reason: Cough Comments: You were seen in the emergency department for cough, possibly allergen induced. Prescription sent to [facility]. Please follow-up with your primary care provider and return to the emergency department if you have any new or worsening symptoms or other concerns.
[2024-04-10] MEDS: DEXAMETHASONE 10 MG/ML VIAL PO STA (02:20)
[2024-04-10] MEDS: CHERRY SYRUP 10 ML UDC PO ONE (02:20)
[2024-04-10 02:33] VITALS: BP 154/73; O2SAT 98
== END 2024-04-10 02:30 | disposition home or self-care (01) ==
LOC: ED 01:43
DX: R05.9 Cough, unspecified (principal); F41.9 Anxiety disorder, unspecified; M79.7 Fibromyalgia
CPT/HCPCS: 99283; A9270